=== PATIENT | male | born 1950 | race Caucasian/White ===

== ENCOUNTER → 2017-11-05 | Day surgery (SDC) | payer OTHER ==
[2017-11-02 13:33] LABS: BASOPHILS % 0.4 % (0.0-1.0); EOSINOPHILS # (AUTO) 0.1 (0.0-0.4); EOSINOPHILS % 1.9 % (0.0-6.0); HEMATOCRIT 33.8 % (38.2-49.6); HEMOGLOBIN 11.9 g/dL (14.0-18.0); LYMPHOCYTES # (AUTO) 1.7 (1.0-3.2); LYMPHOCYTES % 22.8 % (18.0-39.1); MEAN CORPUSCULAR HEMOGLOBIN 29.8 pg (28-32); MEAN CORPUSCULAR HGB CONC 35.2 g/dL (31-35); MEAN CORPUSCULAR VOLUME 84.5 fL (81-99); MONOCYTES # (AUTO) 0.7 (0.2-0.8); MONOCYTES % 9.3 % (4.4-11.3); NEUTROPHILS # (AUTO) 4.8 (2.1-6.9); NEUTROPHILS % 65.3 % (38.7-80.0); PLATELET COUNT 226 x10e3/uL (140-360)
[~2017-11-05] MED LIST: ASPIR 8181 MG PO; DIOVAN HCT 1601 EAC2 PO; FLOMAX0.4 MG PO; HYDROCHLOROTHIA25 MG PO; HYOSCYAMINE SULFATE 0.5 MG/ML AMP ONE; JANUVIA100 MG PO; MIDAZOLAM HCL 2 MG/2 ML VIAL ONE; Z.0.GLIPIZIDE5 MG PO; Z.0.ZOCOR40 MG PO; Z.2.METFORMIN HCL500 PO
--- NOTE | 2017-11-05 15:18 | Operative Report ---
DATE OF PROCEDURE: November 05, 2017 REFERRING PHYSICIAN: Dr. Gonsalo Hu PROCEDURE PERFORMED: Colonoscopy and polypectomy. INDICATIONS FOR PROCEDURE: Colorectal cancer screening, personal history of colon polyps. MEDICATION: Patient was done under MAC. Please see anesthesiologist's note. PROCEDURE: With the patient in the left lateral decubitus position, the flexible fiberoptic Olympus colonoscope was inserted into the rectum with ease and advanced all the way to the cecum. It was then withdrawn slowly. Mucosa overlying the cecum appeared to be within normal limits. Diverticular disease was noted throughout the colon including the ascending, transverse, descending and sigmoid colon. One polyp was snared from the sigmoid colon. One polyp was hot biopsied from the rectum. The scope was then retroflexed into the distal rectum. Small internal hemorrhoids were noted, none of which was actively bleeding. The scope was then straightened out. It was subsequently withdrawn. Patient tolerated the procedure well. IMPRESSION 1. Pandiverticulosis. 2. Sigmoid colon polyp, snared. 3. Rectal polyp, hot biopsied. 4. Internal hemorrhoids, none actively bleeding. PLAN: Follow up histology. Initiate high-fiber, low-fat diet. Initiate high-fiber supplement. Patient will need a followup colonoscopy in 3 years. Job#: [id number] cc:CANELO HU DO
== END | disposition home or self-care (01) ==
LOC: ENDO 08:45
PROVIDERS: ATTEND Internal Medicine Gastroenterology
DX: Z12.11 Encounter for screening for malignant neoplasm of colon (principal); K63.5 Polyp of colon; K62.1 Rectal polyp; K57.30 Diverticulosis of large intestine without perforation or abscess without bleeding; K64.8 Other hemorrhoids; I10 Essential (primary) hypertension; E11.9 Type 2 diabetes mellitus without complications; F41.9 Anxiety disorder, unspecified; Z01.810 Encounter for preprocedural cardiovascular examination; Z01.812 Encounter for preprocedural laboratory examination; Z79.82 Long term (current) use of aspirin; Z79.84 Long term (current) use of oral hypoglycemic drugs; Z85.46 Personal history of malignant neoplasm of prostate
CPT/HCPCS: 36415 ×2; 45384; 45385; 82948; 85025; 93005; J1980; J2250

== ENCOUNTER → 2022-07-14 | Outpatient (CLI) | payer MEDICARE ==
[~2022-07-14] MED LIST changes: -HYOSCYAMINE SULFATE 0.5 MG/ML AMP ONE; -MIDAZOLAM HCL 2 MG/2 ML VIAL ONE
== END ==
LOC: US 08:47
PROVIDERS: ATTEND Family Medicine
DX: R10.9 Unspecified abdominal pain (principal)
CPT/HCPCS: 76770

== ENCOUNTER → 2023-09-30 | Outpatient (REF) | payer MEDICARE ==
[~2023-09-30] MED LIST changes: +ASPIRIN81 MG PO; +CENTRUM ADULTS1 EACH PO; +GLIPIZIDE ER5 MG PO; +IRON PO; +JANUVIA50 MG PO; +METFORMIN HCL500 MG PO; +POTASSIUM CHLO10 ME1 PO; +PRESERVISION A1 EAC4 PO; +SIMVASTATIN20 MG PO; +VALSARTAN-HCTZ1 EAC3 PO; +VIT B12 PO; +VIT D3 PO
== END ==
LOC: DX 10:23
PROVIDERS: ATTEND Nurse Practitioner
DX: D64.89 Other specified anemias (principal); Z86.010 Personal history of colon polyps
CPT/HCPCS: 74250